=== PATIENT | male | born 1940 | race Caucasian/White ===

== ENCOUNTER 2017-09-15 22:25 | Inpatient (IN) | payer OTHER, BC ==
[~2017-09-15] VITALS: Ht 165.1 cm; Wt 88.2 kg
[2017-09-15 22:38] VITALS: Ht 165.1 cm; Wt 88.2 kg
[2017-09-15 23:15] LABS: BASOPHIL % 0.6 % (0-2); PLATELET COUNT 84 x10^3mcL (130-400); RED CELL DISTRIBUTION WIDTH 17.7 % (11.5-14.5)
[2017-09-15 23:35] LABS: ALBUMIN 3.9 g/dL (3.4-5.0); ALKALINE PHOSPHATASE 136 U/L (46-116); ALT/SGPT 34 U/L (16-63); AST/SGOT 41 U/L (15-37); BILIRUBIN TOTAL 0.7 mg/dL (0.20-1.00); CALCIUM 9.1 mg/dL (8.5-10.1); CARBON DIOXIDE 24.5 mmol/L (21-32); CHLORIDE SERUM 95 mmol/L (98-107); GLUCOSE SERUM 111 mg/dL (74-106); POTASSIUM SERUM 4.9 mmol/L (3.5-5.1); SODIUM SERUM 132 mmol/L (136-145)
[2017-09-15 23:38] LABS: CK-MB 2.8 ng/mL (0-3.6)
[2017-09-15 23:39] LABS: TOTAL PROTEIN, SERUM 8.4 g/dL (6.4-8.2)
[2017-09-16] VITALS (7 sets, daily range): BP systolic 99–129; BP diastolic 47–66
[2017-09-16] MEDS ORDERED: ASPIR 8181 MG PO (01:14)
[2017-09-16] MEDS ORDERED: CALCIUM ACETAT667 M3 PO (01:14)
[2017-09-16] MEDS ORDERED: ALLOPURINOL100 MG PO (01:14)
[2017-09-16] MEDS ORDERED: LASIX40 MG PO (01:14)
[2017-09-16] MEDS ORDERED: ISOSORBIDE MONO60 MG PO (01:15)
[2017-09-16] MEDS ORDERED: MECLIZINE HYDRO25 M1 PO (01:15)
[2017-09-16] MEDS ORDERED: FAMOTIDINE20 M1 PO (01:15)
[2017-09-16] MEDS ORDERED: LIPI20 PO (01:16)
[2017-09-16] MEDS ORDERED: NOR10 PO (01:16)
[2017-09-16 01:27] LABS: MAGNESIUM 3.1 mg/dL (1.8-2.4); PHOSPHOROUS 7.1 mg/dL (2.5-4.9)
[2017-09-16 01:36] LABS: CHOLESTEROL/HDL RATIO 2.8
[2017-09-16 01:39] LABS: FREE T4 0.88 ng/dL (0.76-1.46); FREE THYROXINE INDEX 1.9 ug/dL (1.4-4.5); T4(THYROXINE) 6.1 ug/dL (4.7-13.3)
[2017-09-16 02:40] LABS: UA SPECIFIC GRAVITY 1.015 (1.005-1.035); microscopic required? YES; urine erythrocyte 2+ (NEGATIVE)
[2017-09-16 06:32] LABS: IRON 50 ug/dL (65-170); TOTAL IRON BINDING CAPACITY 263 ug/dL (250-450)
[2017-09-16 07:57] LABS: RED BLOOD CELLS 3.15 M/mm3 (4.52-5.90)
[2017-09-16] MEDS ORDERED: MONTELUKAST SOD10 M1 PO (18:45)
[2017-09-16] MEDS ORDERED: TOPROL XL25 MG PO (18:46)
[2017-09-16 23:06] LABS: T3 TOTAL 0.83 ng/mL
[2017-09-17 04:56] VITALS: BP 109/59
[2017-09-17 06:36] LABS: CALCIUM 8.9 mg/dL (8.5-10.1); CARBON DIOXIDE 20.2 mmol/L (21-32); CHLORIDE SERUM 91 mmol/L (98-107); GLUCOSE SERUM 100 mg/dL (74-106); MAGNESIUM 3.3 mg/dL (1.8-2.4); SODIUM SERUM 130 mmol/L (136-145)
[2017-09-17 06:39] LABS: BASOPHIL % 0.7 % (0-2)
[2017-09-17 06:54] LABS: PLATELET COUNT 63 x10^3mcL (130-400); RED CELL DISTRIBUTION WIDTH 17.4 % (11.5-14.5)
[2017-09-17 07:42] LABS: CREATININE SERUM 11.3 mg/dL (0.7-1.3)
[2017-09-17 07:43] LABS: POTASSIUM SERUM 6.1 mmol/L (3.5-5.1)
[2017-09-17 08:55] LABS: PHOSPHOROUS 10.2 mg/dL (2.5-4.9)
[2017-09-17 09:07] VITALS: BP 115/62
[2017-09-17 13:11] VITALS: BP 131/69
[2017-09-17 17:31] VITALS: BP 101/50
[2017-09-17 21:37] VITALS: BP 102/54
[2017-09-18 05:58] VITALS: BP 116/59
[2017-09-18 06:34] LABS: CALCIUM 8.6 mg/dL (8.5-10.1); CARBON DIOXIDE 24.5 mmol/L (21-32); CHLORIDE SERUM 97 mmol/L (98-107); GLUCOSE SERUM 97 mg/dL (74-106); MAGNESIUM 2.7 mg/dL (1.8-2.4); POTASSIUM SERUM 5.2 mmol/L (3.5-5.1); SODIUM SERUM 135 mmol/L (136-145)
[2017-09-18 08:28] LABS: BASOPHIL % 0.3 % (0-2)
[2017-09-18 08:34] LABS: PLATELET COUNT 62 x10^3mcL (130-400); RED CELL DISTRIBUTION WIDTH 17.6 % (11.5-14.5)
[2017-09-18 09:35] VITALS: BP 109/59
[2017-09-18 09:51] LABS: CREATININE SERUM 9.1 mg/dL (0.7-1.3)
[2017-09-18 12:23] VITALS: BP 102/53
[2017-09-18 13:11] LABS: CALCIUM 9.1 mg/dL (8.5-10.1); CHLORIDE SERUM 95 mmol/L (98-107); GLUCOSE SERUM 82 mg/dL (74-106); POTASSIUM SERUM 5.2 mmol/L (3.5-5.1); SODIUM SERUM 132 mmol/L (136-145)
[2017-09-18 13:13] LABS: CREATININE SERUM 9.3 mg/dL (0.7-1.3)
[2017-09-18] MEDS ORDERED: CLINDAMYCIN HC300 MG PO (14:04)
[2017-09-18] MEDS ORDERED: BD LACTINEX1.4 MG PO (14:05)
[2017-09-18 14:15] VITALS: BP 102/53
== END 2017-09-18 17:06 | disposition home or self-care (01) | DRG 602 ==
LOC: ED 22:25 → DU 09-16 00:39
PROVIDERS: Emergency Medicine; Family Medicine; Family Medicine Sports Medicine; Internal Medicine
DX: L03.115 Cellulitis of right lower limb (principal); N18.6 End stage renal disease; N17.0 Acute kidney failure with tubular necrosis; I13.11 Hypertensive heart and chronic kidney disease without heart failure, with stage 5 chronic kidney disease, or end stage renal disease; I43 Cardiomyopathy in diseases classified elsewhere; N39.0 Urinary tract infection, site not specified; E87.1 Hypo-osmolality and hyponatremia; I48.91 Unspecified atrial fibrillation; I35.0 Nonrheumatic aortic (valve) stenosis; R31.9 Hematuria, unspecified; E11.51 Type 2 diabetes mellitus with diabetic peripheral angiopathy without gangrene; E11.22 Type 2 diabetes mellitus with diabetic chronic kidney disease; K21.9 Gastro-esophageal reflux disease without esophagitis; N28.1 Cyst of kidney, acquired; D64.9 Anemia, unspecified; E78.5 Hyperlipidemia, unspecified; E66.9 Obesity, unspecified; Z68.32 Body mass index [BMI] 32.0-32.9, adult; Z79.01 Long term (current) use of anticoagulants; Z95.2 Presence of prosthetic heart valve; Z95.1 Presence of aortocoronary bypass graft; Z99.2 Dependence on renal dialysis; Z79.82 Long term (current) use of aspirin
CPT/HCPCS: 82962; 83880; 84439; J0690; J1644; J1885; J1956; J3490; J7030; J7620; J8597; Q0092

== ENCOUNTER 2018-08-31 07:05 | Emergency (ER) | payer OTHER, BC ==
[~2018-08-31] VITALS: Ht 165.1 cm; Wt 85.7 kg
[~2018-08-31 07:05] MED LIST: ALLOPURINOL100 MG PO; ASPIR 8181 MG PO; BD LACTINEX1.4 MG PO; CALCIUM ACETAT667 M3 PO; CLINDAMYCIN HC300 MG PO; FAMOTIDINE20 M1 PO; ISOSORBIDE MONO60 MG PO; LASIX40 MG PO; LIPI20 PO; MECLIZINE HYDRO25 M1 PO; MONTELUKAST SOD10 M1 PO; NOR10 PO; TOPROL XL25 MG PO
[2018-08-31 07:11] VITALS: Ht 165.1 cm; Wt 85.7 kg
[2018-08-31 08:11] LABS: BASOPHIL % 0.5 % (0-2)
[2018-08-31 08:17] LABS: PLATELET COUNT 69 x10^3mcL (130-400); RED CELL DISTRIBUTION WIDTH 16.8 % (11.5-14.5)
[2018-08-31 08:21] LABS: ALBUMIN 3.6 g/dL (3.4-5.0); ALKALINE PHOSPHATASE 191 U/L (46-116); ALT/SGPT 34 U/L (16-63); AST/SGOT 38 U/L (15-37); BILIRUBIN TOTAL 1.3 mg/dL (0.20-1.00); CALCIUM 9.8 mg/dL (8.5-10.1); CARBON DIOXIDE 32.5 mmol/L (21-32); CHLORIDE SERUM 100 mmol/L (98-107); GLUCOSE SERUM 116 mg/dL (74-106); POTASSIUM SERUM 4.1 mmol/L (3.5-5.1); SODIUM SERUM 141 mmol/L (136-145); TOTAL PROTEIN, SERUM 7.7 g/dL (6.4-8.2)
[2018-08-31 08:27] LABS: CREATININE SERUM 6.9 mg/dL (0.7-1.3)
[2018-08-31 09:26] VITALS: BP 142/70
== END 2018-08-31 09:26 | disposition home or self-care (01) ==
LOC: ED 07:05
PROVIDERS: Emergency Medicine
DX: R04.0 Epistaxis (principal); D64.9 Anemia, unspecified; D69.6 Thrombocytopenia, unspecified; E11.22 Type 2 diabetes mellitus with diabetic chronic kidney disease; I12.0 Hypertensive chronic kidney disease with stage 5 chronic kidney disease or end stage renal disease; N18.6 End stage renal disease; M10.9 Gout, unspecified; E78.00 Pure hypercholesterolemia, unspecified; Z95.2 Presence of prosthetic heart valve; Z98.890 Other specified postprocedural states
CPT/HCPCS: 36415; J3490